=== PATIENT | male | born 1970 | race Caucasian/White ===

== ENCOUNTER → 2019-10-20 | Outpatient (CLI) | payer BC ==
--- NOTE | 2019-10-20 16:35 | XR ---
EXAMINATION TYPE: XR shoulder complete RT DATE OF EXAM: 10/20/2019 CLINICAL HISTORY: Chronic right shoulder pain. History of old injury. TECHNIQUE: Three views of the right shoulder are obtained. COMPARISON: None. FINDINGS: There is no acute fracture/dislocation evident in the right shoulder. The acromioclavicul ar and glenohumeral joint spaces appear within normal limits. There is mild cortical irregularity and subchondral cystic change of the humeral head and irregularity of the tuberosities which may be rela kishore to old trauma. The visualized ribs are intact and unremarkable. IMPRESSION: 1. There is no acute fracture or dislocation in the right shoulder. 2. Irregularities of the humeral head which may be related to old trauma and/or sequela of rotator c uff injury.
--- NOTE | 2019-10-21 08:18 | MM ---
Reason for exam: clinical finding. Baseline mammogram. History: Family history of breast cancer in mother at age 42. Indicated problem(s): palpable abnormality in the left breast. Physical Findings: Nurse Summary: 2 x 2cm nodule in the left breast at nipple (nurse ts). [facility] Diagnostic Mammo w CAD MIKHAIL Bilateral CC and MLO view(s) were taken. XCCL view(s) were taken of the left breast. There are scattered fibroglandular densities. There is asymmetric density left retroareolar. These results were verbally communicated with the patient and result sheet given to the patient on 10/20/19. ASSESSMENT: Incomplete: need additional imaging evaluation, BI-RAD 0 RECOMMENDATION: Ultrasound of both breasts.
--- NOTE | 2019-10-21 08:20 | USB ---
Reason for exam: additional evaluation requested from abnormal screening. History: Family history of breast cancer in mother at age 42. US Breast Limited LT Left limited breast ultrasound including focal area of concern, retroareolar and axilla demonstrates a 2.9 x 1.2 x 2.7cm hypoechoic lesion at the posterior nipple. Right limited breast ultrasound including focal area of concern, retroareolar and axilla demonstrates a 1.5 x 0.5 x 1.3cm hypoechoic lesion at the posterior nipple. These results were verbally communicated with the patient and result sheet given to the patient on 10/20/19. ASSESSMENT: Suspicious, BI-RAD 4 RECOMMENDATION: Ultrasound core biopsy of the left breast. Called Dr. Hammonds's office with mammographic findings and has scheduled an appointment for the patient for 11/17/19 at 8:[address] Carroll. Biopsy scheduled for 10/31/19 at 1:00. PRELIMINARY REPORT CALLED AND FAXED TO DR. CARROLL ON 10/21/19.
== END | disposition home or self-care (01) ==
LOC: RADMAMWWP 12:54
PROVIDERS: ATTEND Family Medicine
DX: N63.20 Unspecified lump in the left breast, unspecified quadrant (principal); R92.8 Other abnormal and inconclusive findings on diagnostic imaging of breast; M25.511 Pain in right shoulder
CPT/HCPCS: 77066

== ENCOUNTER → 2019-10-31 | Day surgery (SDC) | payer BC ==
[2019-10-31 12:22] VITALS: RESP 16
[2019-10-31 13:33] VITALS: BP 133/77; PULSE 71; TEMP 98.3
--- NOTE | 2019-10-31 14:02 | USB ---
EXAMINATION TYPE: US biopsy breast VAD LT DATE OF EXAM: 10/31/2019 CLINICAL HISTORY: N62 breast lump present for few months becoming more painful. Abnormal mammogram an d ultrasound. Family history of breast cancer and mom. TECHNIQUE: Ultrasound guided core biopsy of left breast. COMPARISON: Prior mammogram and ultrasound October 20, 2019. FINDINGS: The procedure of ultrasound guided core biopsy was explained to the patient. Benefits, alt ernatives, and risks were discussed. An informed consent was then obtained. The patient was placed in supine positioning for imaging and for the procedure. Preprocedure ultraso und redemonstrates plane shaped heterogeneous hypoechoic area subareolar region left breast. The over lying skin was prepped and draped in usual sterile fashion. Lidocaine is used as anesthetic into the skin and subcutaneous tissue up to area of concern in the left breast. A farnaz was made with surgica l scalpel. Under ultrasound guidance, first attempts were made with 18-gauge Bard needle with 2 successful biops ies. A 12-gauge vacuum assisted biopsy gun device was used to obtain 2 core samples for larger tissue . Biopsy clip deferred due to well-visualized lesion under ultrasound. The patient tolerated the procedure well without any immediate complication. The patient was kept in the radiology department for short stay after the procedure and then discharged home in stable condi tion. IMPRESSION: Successful, uncomplicated ultrasound guided core biopsy of area of concern in the left br east, full pathology results to follow. Low to intermediate index of suspicion. Favor asymmetric more prominent left-sided gynecomastia.
== END ==
LOC: RADUSWWP 12:03
PROVIDERS: ATTEND Surgery
DX: N60.32 Fibrosclerosis of left breast (principal); Z80.3 Family history of malignant neoplasm of breast
CPT/HCPCS: 88305; 19083; J2001

== ENCOUNTER → 2019-12-08 | Outpatient (CLI) | payer BC ==
--- NOTE | 2019-12-09 07:57 | US ---
EXAMINATION TYPE: US kidneys/renal and bladder DATE OF EXAM: 12/08/2019 COMPARISON: NONE CLINICAL HISTORY: R82.90,R80.9 ABN FINDINGS IN URINE. Protein in urin EXAM MEASUREMENTS: Right Kidney: 13.4 x 6.6 x 6.2 cm Left Kidney: 12.3 x 6.1 x 5.8 cm Right Kidney: no hydronephrosis or masses seen Left Kidney: no hydronephrosis, prominent cortex of the midpole to lower pole the left kidney may be technical. Bladder: wnl Bilateral Jets seen: yes There is no evidence for hydronephrosis at this point in time. No nephrolithiasis is seen. Cortical medullary differentiation is maintained. The urinary bladder is anechoic. Bilateral ureteral jets a re seen. IMPRESSION: There is some prominence of the cortex of the left kidney, consider short interval follow-up or alter natively contrast-enhanced CT or MRI for better evaluation.
== END | disposition home or self-care (01) ==
LOC: RADUSWWP 16:10
PROVIDERS: ATTEND Family Medicine
DX: R80.9 Proteinuria, unspecified (principal); R82.90 Unspecified abnormal findings in urine
CPT/HCPCS: 76770

== ENCOUNTER → 2022-04-19 | Outpatient (CLI) | payer BC ==
[2022-04-19 16:11] LABS: Basophils # (A) 0.03 X 10*3/uL (0.00-0.10); Basophils % (A) 0.5 %; Eosinophils # (A) 0.12 X 10*3/uL (0.04-0.35); Eosinophils % (A) 2.1 %; HCT 39.7 % (39.6-50.0); Immature Grans, Automated 0.2 %; Lymphocytes # (A) 1.46 X 10*3/uL (0.90-5.00); MCH 30.1 pg (27.0-32.0); MCHC 35.3 g/dL (32.0-37.0); MCV 85.4 fL (80.0-97.0); Mean Platelet Volume 10.8 fL (9.5-12.2); Monocytes # (A) 0.68 X 10*3/uL (0.20-1.00); Monocytes % (A) 11.6 %; NRBC Per 100 WBC 0 /100 WBCS (0.0-0.0); Neutrophils # (A) 3.55 X 10*3/uL (1.80-7.70); Neutrophils % (A) 60.6 %; Platelet Count 261 X 10*3/uL (140-440); RBC 4.65 X 10*6/uL (4.40-5.60); RDW 12.5 % (11.5-14.5); WBC 5.85 X 10*3/uL (4.50-10.00)
[2022-04-19 16:38] LABS: ALT 48 U/L (10-49); AST 25 U/L (14-35); African American GFR (CKD) 114.9 (60.0-200.0); Albumin 4.3 g/dL (3.8-4.9); Albumin/Globulin Ratio 1.93 (1.60-3.17); Alkaline Phosphatase 84 U/L (41-126); BUN/Creat Ratio 16.32 Ratio (12.00-20.00); Calcium 9.4 mg/dL (8.7-10.3); Chloride 103 mmol/L (96-109); Chol/HDL Ratio 3.06 Ratio; Globulin 2.3 g/dL (1.6-3.3); Glucose 125 mg/dL (70-110); LDL Cholesterol,Calculated 44.9 mg/dL (0.0-131.0); Non-African American GFR(CKD) 99.1 (60.0-200.0); Potassium 3.8 mmol/L (3.5-5.5); Sodium 141 mmol/L (135-145); Total Protein 6.6 g/dL (6.2-8.2)
== END | disposition home or self-care (01) ==
LOC: LABWHC1 11:05
PROVIDERS: ATTEND Family Medicine
DX: Z12.5 Encounter for screening for malignant neoplasm of prostate (principal); I10 Essential (primary) hypertension; E11.9 Type 2 diabetes mellitus without complications; H66.91 Otitis media, unspecified, right ear; S13.4XXA Sprain of ligaments of cervical spine, initial encounter; Y99.9 Unspecified external cause status
CPT/HCPCS: 36415; 80053; 80061; 84153; 84443; 85025

== ENCOUNTER → 2024-08-06 | Outpatient (CLI) | payer SELFPAY ==
[2024-08-06 15:09] LABS: Basophils # (A) 0.04 X 10*3/uL (0.00-0.10); Basophils % (A) 0.7 %; Eosinophils # (A) 0.12 X 10*3/uL (0.04-0.35); HCT 41.1 % (39.6-50.0); HGB 14.7 g/dL (13.0-17.0); Immature Grans, Automated 0 %; Lymphocytes # (A) 1.72 X 10*3/uL (0.90-5.00); Lymphocytes % (A) 28.6 %; MCH 30.8 pg (27.0-32.0); MCHC 35.8 g/dL (32.0-37.0); Mean Platelet Volume 10.3 FL (9.5-12.2); Monocytes # (A) 0.62 X 10*3/uL (0.20-1.00); Monocytes % (A) 10.3 %; NRBC Per 100 WBC 0 X 10*3/uL (0.00-0.01); Neutrophils # (A) 3.51 X 10*3/uL (1.80-7.70); Neutrophils % (A) 58.4 %; Platelet Count 285 X 10*3/uL (140-440); RBC 4.78 X 10*6/uL (4.40-5.60); RDW 12.9 % (11.5-14.5); WBC 6.01 X 10*3/uL (4.50-10.00)
[2024-08-06 15:19] LABS: Hepatitis C IgG Antibody Nonreactive (Nonreactive)
[2024-08-06 15:22] LABS: ALT 71 U/L (10-49); AST 35 U/L (14-35); Albumin 4.2 g/dL (3.8-4.9); Albumin/Globulin Ratio 1.83 Ratio (1.60-3.17); Alkaline Phosphatase 79 U/L (41-126); BUN/Creat Ratio 15.33 Ratio (12.00-20.00); Blood Urea Nitrogen 13.8 mg/dL (9.0-27.0); Calcium 9.1 mg/dL (8.7-10.3); Carbon Dioxide 23.2 mmol/L (21.6-31.8); Chloride 102 mmol/L (96-109); Chol/HDL Ratio 3.06 Ratio; Globulin 2.3 g/dL (1.6-3.3); Glucose 151 mg/dL (70-110); Potassium 3.6 mmol/L (3.5-5.5); Prostate Specific Antigen 0.25 ng/mL (0.000-3.500); Sodium 140 mmol/L (135-145); Total Bilirubin 0.7 mg/dL (0.3-1.2); Total Protein 6.5 g/dL (6.2-8.2)
== END | disposition home or self-care (01) ==
LOC: LABWHC1 10:01
PROVIDERS: ATTEND Family Medicine
DX: Z00.00 Encounter for general adult medical examination without abnormal findings (principal); Z12.5 Encounter for screening for malignant neoplasm of prostate; I10 Essential (primary) hypertension; E11.59 Type 2 diabetes mellitus with other circulatory complications; E11.69 Type 2 diabetes mellitus with other specified complication; E78.2 Mixed hyperlipidemia; E66.811 Obesity, class 1; M75.52 Bursitis of left shoulder; G62.9 Polyneuropathy, unspecified; Z68.34 Body mass index [BMI] 34.0-34.9, adult
CPT/HCPCS: 36415; 80053; 80061; 84153; 84443; 85025; 86803; 87522